=== PATIENT | male | born 1950 | race Caucasian/White ===

== ENCOUNTER → 2018-08-22 11:41 | Outpatient (CLI) | payer MEDICARE, SELFPAY ==
[2018-08-22 12:24] LABS: Basophils % 0.8 % (0.1-2.0); Eosinophils # 0.3 K/mm3 (0.0-0.4); Eosinophils % 4.8 % (0.1-12.0); Hematocrit 46.7 % (42.0-52.0); Hemoglobin 15.1 g/dL (14.1-18.0); Lymphocytes # 0.9 K/mm3 (0.7-4.5); Lymphocytes % 16.9 % (10-50); Mean Corpuscular HGB Conc 32.3 g/dL (31.8-35.4); Mean Corpuscular Hemoglobin 30.2 pg (27.0-31.2); Mean Corpuscular Volume 93.7 fl (80-94); Monocytes # 0.4 K/mm3 (0.1-1.0); Monocytes % 8.2 % (1.7-9.3); Neutrophils # 3.5 K/mm3 (1.8-7.8); Neutrophils % 69.3 % (37.0-80.0); Platelet Count 129 K/mm3 (142-424); Red Blood Count 4.99 M/mm3 (4.60-6.20); Red Cell Distribution Width 14.3 % (11.5-17.5); White Blood Count 5.1 K/mm3 (4.8-10.8)
[2018-08-22 13:59] LABS: Alanine Aminotransferase 16 U/L (12-78); Albumin Level 3.5 gm/dL (3.4-5.0); Albumin/Globulin Ratio 1.3 (1.1-1.8); Alkaline Phosphatase 83 U/L (46-116); Aspartate Amino Transferase 17 U/L (15-37); Bilirubin,Total 0.6 mg/dL (0.2-1.0); Blood Urea Nitrogen 24 mg/dL (7-18); Calcium 8.2 mg/dL (8.5-10.1); Carbon Dioxide 29 mmol/L (21.0-32.0); Chloride 100 mmol/L (98-107); Creatinine,Serum 1.11 mg/dL (0.70-1.30); Estimated Glomerular Filt Rate 66 ml/min (>60); GFR (African American) 80 ML/MIN (>60); Globulin 2.6 gm/dl (1.3-3.2); Glucose 70 mg/dL (74-106); Sodium 139 mmol/L (136-145); Thyroid Stimulating Hormone 1.77 uIU/ml (0.358-3.740); Total Protein,Serum 6.1 gm/dL (6.4-8.2)
[2018-08-25 06:59] LABS: Immunoglobulin E, Total 4 IU/mL (0-100)
== END ==
PROVIDERS: Visit Provider Nurse Practitioner Family
DX: E03.9 Hypothyroidism, unspecified (principal); L50.8 Other urticaria
CPT/HCPCS: 36415; 80053; 82785; 84443; 85025

== ENCOUNTER → 2019-01-24 13:51 | Outpatient (CLI) | payer MEDICARE, SELFPAY ==
--- NOTE | 2019-01-24 14:02 | XR_ITS ---
XR knee LT 4V HISTORY: Left knee pain ITS.REASON: left knee 4 views weightbearing ORDERING PHYSICIAN: Maddi López MD PATIENT AGE: 68 years COMPARISON: None FINDINGS: There is severe osteoarthritis of the medial compartment with moderate osteoarthritis of the patellofemoral joint and lateral compartment. There is mild valgus angulation of the tibia with loss of the medial joint space and osteosclerosis. No fracture or dislocation. IMPRESSION: Severe osteoarthritis of the left knee
--- NOTE | 2019-01-24 14:02 | XR_ITS ---
XR knee RT 4V HISTORY: Knee pain ITS.REASON: right knee 4 views weightbearing ORDERING PHYSICIAN: Maddi López MD PATIENT AGE: 68 years COMPARISON: None FINDINGS: There are severe osteoarthritic changes of the medial compartment and patellofemoral joint with moderate osteoarthritis of the lateral compartment. There is loss of the joint space medially with mild lateral tibial subluxation and mild varus angulation of the tibia. Small suprapatellar effusion is present. There is periarticular calcification of the medial aspect of the distal femur. Chondrocalcinosis involves the lateral meniscus. IMPRESSION: Severe osteoarthritis of the right knee as described above
== END ==
PROVIDERS: PCP Internal Medicine Adolescent Medicine; Visit Provider Orthopaedic Surgery
DX: M25.561 Pain in right knee (principal); M25.562 Pain in left knee
CPT/HCPCS: 73564

== ENCOUNTER → 2019-02-06 16:19 | Outpatient (CLI) | payer MEDICARE, SELFPAY ==
--- NOTE | 2019-02-06 16:28 | XR_ITS ---
XR chest 2V HISTORY: ITS.REASON: COUGH,WHEEZING ORDERING PHYSICIAN: Dennis Monroe MD PATIENT AGE: 69 years COMPARISON: 02/25/2016 FINDINGS: The cardiomediastinal silhouette and pulmonary vascularity are within normal limits. COPD with chronic changes are noted. There are emphysematous changes with bullous changes in the upper and lower lobes. There is increased density in the right perihilar region and may be related to dense consolidation or developing mass. This area measures approximately 4.7 x 2.9 x 5[address] with contrast for further evaluation. No acute bony abnormalities. IMPRESSION: Right perihilar mass versus dense consolidation. Suggest chest CT with contrast for further evaluation COPD with emphysema
== END ==
PROVIDERS: PCP Internal Medicine Adolescent Medicine; Visit Provider Internal Medicine Adolescent Medicine
DX: R05 Cough (principal); R06.2 Wheezing
CPT/HCPCS: 71046